=== PATIENT | female | born 1950 | race Caucasian/White ===

== ENCOUNTER 2018-09-13 12:07 | Day surgery (SDC) | payer BC ==
[2018-09-13] MEDS ORDERED: EPHEDrine SULFATE 50 MG/5 ML SYG IV (14:00)
[2018-09-13] MEDS ORDERED: hydrALAzine 20 MG INJ IV (14:00)
[2018-09-13] MEDS ORDERED: ONDANSETRON 4 MG INJ IV (14:00)
[2018-09-13] MEDS ORDERED: LABETALOL HCL 20MG INJ IV (14:00)
[2018-09-13] MEDS ORDERED: FENTAnyl 50 MCG/ML VIAL IV (14:00)
[2018-09-13] MEDS ORDERED: PROPOFOL 60 ML (14:03)
[2018-09-13] MEDS ORDERED: LIDOCAINE 2% (SDV) 5 ML INJ (14:04)
== END 2018-09-13 14:55 | disposition home or self-care (01) ==
LOC: GIL 12:07
DX: Z12.11 Encounter for screening for malignant neoplasm of colon (principal); K64.0 First degree hemorrhoids; K57.30 Diverticulosis of large intestine without perforation or abscess without bleeding; E66.9 Obesity, unspecified; Z68.37 Body mass index [BMI] 37.0-37.9, adult
CPT/HCPCS: 45378